=== PATIENT | female | born 1985 | race Caucasian/White ===

== ENCOUNTER 2020-06-17 17:49 | Emergency (ER) | payer BC, SELFPAY ==
--- NOTE | ~2020-06-17 | XR_ITS ---
EXAMINATION: XR chest 2V DATE: 06/17/2020 18:22 INDICATION: Chest pain TECHNIQUE: PA and lateral views of the chest are obtained. COMPARISON: None available FINDINGS: The lungs are free of acute opacities. There is no pleural effusion or pneumothorax. The ca rdiomediastinal silhouette is normal. The visualized bones and soft tissues are unremarkable. IMPRESSION: 1. No acute cardiopulmonary abnormality. Reviewed, dictated and finalized at location A. AL DIRECTOR
[2020-06-17 17:57] VITALS: BP 154/102; PULSE 112; RESP 24; TEMP 36.8; O2SAT 97
--- NOTE | 2020-06-17 17:58 | ECG_ITS ---
Measurements Intervals [place] Rate: 106 P: 49 TX: 184 QRS: 43 QRSD: 93 T: 10 QT: 331 QTc: 440 Interpretive Statements SINUS TACHYCARDIA BORDERLINE T WAVE ABNORMALITY- INFERIOR LEADS BASELINE WANDER- V5-V6 ABNORMAL ECG Electronically Signed On 06-17-2020 19:58:33 ANIMAL WARDEN by Rakan Mims D.O.
--- NOTE | 2020-06-17 18:37 | ED.CHESTPAIN ---
HPI - Chest Pain General Chief Complaint: Chest Pain Stated Complaint: chest pain Time Seen by Provider: 06/17/20 18:35 Source: patient Mode of arrival: ambulatory Limitations: no limitations History of Present Illness HPI narrative: Patient is a 35-year-old female complaining of chest pain, left-sided, sharp, 6 out of 10, nonradiating, worse with palpation and movement, started approximately 3 days ago. Patient states that the she started taking phentermine for weight loss 1 week ago. Patient denies any shortness of breath, abdominal pain, nausea, vomiting, diaphoresis, fever or chills. Review of Systems Review of Systems: All systems reviewed & are unremarkable except as noted in HPI and below Constitutional: Constitutional: Denies body ache(s), Denies chills, Denies excessive sweating, Denies fatigue, Denies fever(s), Denies headache(s), Denies lethargy, Denies malaise, Denies weakness and Denies weight loss Eyes: Eyes: Denies blurry vision, Denies change in vision and Denies loss of vision ENT: Denies dizziness, Denies ear discharge, Denies headache(s), Denies lip swelling, Denies epistaxis, Denies nasal congestion, Denies neck pain, Denies throat swelling and Denies tongue swelling Cardiovascular: Cardiovascular: Denies diaphoresis, Denies rapid heart rate, Denies edema, Denies irregular heart rhythm, Denies lightheadedness, Denies palpitations, Denies dyspnea and Denies dyspnea on exertion Respiratory: Respiratory: Denies chest congestion, Denies cough, Denies hemoptysis, Denies dyspnea and Denies dyspnea on exertion Gastrointestinal: Gastrointestinal: Denies abdominal pain, Denies melena, Denies hematochezia, Denies diarrhea, Denies nausea, Denies vomiting and Denies hematemesis Musculoskeletal: Musculoskeletal: Denies abnormal gait, Denies deformity, Denies joint swelling, Denies limited range of motion, Denies neck pain and Denies numbness Neurologic: Denies Abnormal speech present, Denies abnormal gait, Denies confusion, Denies dizziness, Denies headache(s), Denies focal weakness, Denies loss of vision, Denies numbness, Denies Other visual disturbances, Denies Sensory deficit (Neuro) and Denies weakness Psychiatric: Psychiatric: Denies confusion, Denies depression, Denies auditory hallucinations, Denies homicidal ideation and Denies suicidal ideation Endocrine: Endocrine: Denies cold intolerance, Denies excessive sweating, Denies fatigue, Denies heat intolerance and Denies palpitations Hematologic/Lymphatic: Hematologic/Lymphatic: Denies easy bleeding and Denies easy bruising Allergic/Immunologic: Allergic/Immunologic: Denies lip swelling, Denies throat swelling and Denies tongue swelling PMFSH Comments Past medical history obesity Social history non-smoker no EtOH or drug use Family history noncontributory Exam Const: General: cooperative, healthy appearing, comfortable, no acute distress, well developed, alert and awake; No confusion Orientation/consciousness: oriented to person, oriented to place, oriented to time, patient oriented x3 and No confusion Limitations: no limitations HENMT: Head: normal to inspection, normocephalic and atraumatic Ears: hearing grossly normal bilaterally, TM normal on the right and TM normal on the left General nose exam: Normal external nose present, Normal nares present and No nasal discharge present Face and sinus: normal facial exam Mouth: Yes Normal oral and palatal mucosa present, Yes lip normal, Yes tongue normal and Yes oropharynx normal Throat: posterior oropharynx normal, tonsils normal and uvula midline Eyes: General: appearance normal, both eyes and all related structures Pupils: Equal, round and reactive pupils present EOM: EOMs intact bilaterally Neck: Neck: normal visual inspection, full ROM, no lymphadenopathy and no meningeal signs Chest: Chest palpation & inspection: normal inspection of the chest Resp: Effort & Inspection: normal respiratory effort, able to speak in com
[2020-06-17 18:43] LABS: Basophils Absolute Auto 0.1 K/mm3 (0.0-0.1); Basophils Percent Auto 0.7 % (0.2-1.2); Eosinophils Absolute Auto 0.2 K/mm3 (0-0.3); Eosinophils Percent Auto 2.4 % (0-4.4); Hematocrit 40.9 % (37.0-47.0); Hemoglobin 13.4 g/dL (12.0-15.0); Immature Granulocyte Absolute 0.02 K/mm3 (0.00-0.031); Immature Granulocyte Percent A 0.2 % (0-0.5); Lymphocytes Absolute Auto 3.21 K/mm3 (0.9-3.2); Lymphocytes Percent Auto 34.1 % (18.3-44.2); Mean Corpuscular HGB Conc 32.8 g/dl (32-36); Mean Corpuscular Hemoglobin 29.6 pg (26-34); Mean Corpuscular Volume 90.3 fl (80-100); Mean Platelet Volume 9.5 fl (7.4-10.4); Monocytes Absolute Auto 0.7 K/mm3 (0.1-0.6); Monocytes Percent Auto 7.6 % (2.6-8.5); Neutrophils Absolute Auto 5.2 K/mm3 (1.3-6.7); Platelet Count Result 277 k/mm3 (150-375); Red Blood Count 4.53 M/mm3 (4.2-5.4); Red Cell Distribution Width 12.7 % (11.5-14.5); White Blood Count 9.4 K/mm3 (4.5-10.0)
[2020-06-17 18:54] LABS: INR 0.9; Partial Thromboplastin Time 24.6 SECONDS (22.3-36.8); Prothrombin Time 12.4 Seconds (11.1-14.7)
[2020-06-17 18:55] LABS: Anion Gap 5 mmol/L (8-16); Blood Urea Nitrogen 12 mg/dL (7-17); Carbon Dioxide 27 mmol/L (22-30); Chloride 104 mmol/L (98-107); Estimated CRCL calculation 137 ml/min; Estimated Glomerular Filt Rate > 60; Glucose 99 mg/dL (65-105); Potassium 3.9 mmol/L (3.4-5.0); Sodium 136 mmol/L (137-145)
[2020-06-17 19:06] LABS: Troponin I < 0.012 ng/mL (0.000-0.034)
[2020-06-17 19:14] LABS: D Dimer 0.27 ug/mL (<0.48)
[2020-06-17 19:28] VITALS: BP 128/92; PULSE 89; RESP 16; O2SAT 100
== END 2020-06-17 19:58 | disposition home or self-care (01) ==
PROVIDERS: General Practice; Emergency Provider Emergency Medicine
DX: R07.89 Other chest pain (principal); E66.9 Obesity, unspecified; Z68.36 Body mass index [BMI] 36.0-36.9, adult; R00.0 Tachycardia, unspecified
CPT/HCPCS: 36415; 71046; 80048; 81025; 84484; 85025; 85380; 85610; 85730; 93005; 99284; A4565

== ENCOUNTER 2020-10-12 17:09 | Emergency (ER) | payer OTHER, SELFPAY ==
[2020-10-12 17:20] VITALS: BP 137/86; PULSE 90; RESP 18; TEMP 37.1; O2SAT 98
--- NOTE | 2020-10-12 17:22 | ED.UPPEXIN ---
HPI - Extremity Injury (Upper) General Chief Complaint: Extremity Injury, Upper Stated Complaint: Pain in left Hand Time Seen by Provider: 10/12/20 17:23 Source: patient and RN notes reviewed History of Present Illness HPI narrative: Patient is a 35-year-old female who presents the urgent care with complaints of left hand pain. Patient states it started approximately 1 week ago and she has been using Advil for the pain. Patient states she also got elastic brace [id number] to try to splint the hand. 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 Denies of any known trauma or injury to the hand. No other acute complaints. No acute distress noted. Patient aware of the plan of care. Some parts of this dictation were generated by voice recognition software and may contain typographical and/or grammatical inaccuracies. Related Data Allergies Allergy/AdvReac Type Severity Reaction Status Date / Time No Known Allergies Allergy Verified 10/12/20 17:24 Review of Systems Review of Systems: Narrative: CONSTITUTIONAL: Denies fever, chills, or sweats. EYES: Denies visual changes, redness, or discharge. ENT: Denies rhinorrhea, congestion, sore throat, or otalgia. CARDIOVASCULAR: Denies chest pain, palpitations, or edema. RESPIRATORY: Denies cough or dyspnea. GASTROINTESTINAL: Denies abdominal pain, nausea, vomiting, or diarrhea. GENITOURINARY: Denies dysuria or hematuria. SKIN: Denies rash or itching. MUSCULOSKELETAL: Reports of left hand pain NEUROLOGIC: Denies headache, numbness, or weakness. All other systems reviewed are negative, except as documented in HPI. PMFSH Comments At the time of my signature, I reviewed and agree with the nursing past medical, surgical, social, and family history. There is no relevant family history pertinent to the patient complaint. Exam Narrative: Exam Narrative: GENERAL: This is a well-nourished, well-developed patient, in no apparent distress. HEAD: normocephalic, atraumatic. EYES: PERRL. Sclera clear/white. Vision is grossly intact. EARS: External ears normal NOSE: External nose normal with no obvious nasal discharge, nares without redness, no rhinorrhea. THROAT: Mucous membranes moist NECK: Neck supple CARDIOVASCULAR: Regular rate and rhythm without murmurs, gallops, or rubs. RESPIRATORY: Clear to auscultation. Breath sounds equal bilaterally. No wheezes, rales, or rhonchi. SKIN: warm, intact with no suspicious lesions or rash, good texture and turgor. NEURO: awake, alert, and oriented to person, place and time. There were no obvious focal neurologic abnormalities. EXTREMITIES: No obvious injury, edema, erythema or ecchymosis noted to the left hand. Mild tenderness over the left thenar eminence. Difficulty with making a fist due to pain. Otherwise range of motion within normal limits. Positive strong left radial pulse with capillary refill less than 2 seconds. Course Vital Signs Vital signs: Vital Signs Temperature 98.8 F 10/12/20 17:20 Pulse Rate 90 10/12/20 17:20 Respiratory Rate 18 10/12/20 17:20 Blood Pressure 137/86 10/12/20 17:20 Pulse Oximetry 98 10/12/20 17:20 Temperature 98.8 F 10/12/20 17:20 Pulse Rate 90 10/12/20 17:20 Respiratory Rate 18 10/12/20 17:20 Blood Pressure 137/86 10/12/20 17:20 Pulse Oximetry 98 10/12/20 17:20 Reviewed MDM - Extremity Injury (Upper) MDM Narrative Medical decision making narrative: Advised the patient to complete the steroid regimen as prescribed. Pain is likely due to tendinitis however if pain persist and as recurrent, may need further evaluation with EMG study. Make sure you are eating and drinking while taking the steroid medication. Obtain an [id number] cock-up splint for comfort. May be found at [facility] or [facility]. Follow-up with your PCP within 2 to 5 days or for worsening symptoms or failure to improve. Differential Diagnosis Differential diagnosis: Likely sprain and stra
== END 2020-10-12 17:35 | disposition home or self-care (01) ==
PROVIDERS: Emergency Provider Nurse Practitioner Family
DX: M77.8 Other enthesopathies, not elsewhere classified (principal); M16.10 Unilateral primary osteoarthritis, unspecified hip
CPT/HCPCS: 99213; G0463

== ENCOUNTER 2021-03-06 17:31 | Emergency (ER) | payer OTHER, SELFPAY ==
[2021-03-06 17:38] VITALS: BP 154/86; PULSE 106; RESP 20; TEMP 36.9; O2SAT 100
--- NOTE | 2021-03-06 17:38 | ED.LOWEXIN ---
HPI - Extremity Injury (Lower) General Chief Complaint: Extremity Injury, Lower Stated Complaint: Foot pain in both feet. Time Seen by Provider: 03/06/21 17:38 Source: patient and RN notes reviewed History of Present Illness HPI Narrative: Patient is a 36-year-old female with complaints of bilateral heel and arch pain. 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 Patient states that they have been bothering her for at least 1 month and she has tried switching out her [employer] shoes. 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 States it is increased over the last couple days. Patient denies of any injury or fall. States that she has seen a manager transition in the past and she was placed on oral steroids which helped significantly. Patient states that she has been taking ibuprofen for the pain. No other acute complaints. No acute distress noted. Patient read the plan of care. Some parts of this dictation were generated by voice recognition software and may contain typographical and/or grammatical inaccuracies. Related Data Allergies Allergy/AdvReac Type Severity Reaction Status Date / Time No Known Allergies Allergy Verified 03/06/21 17:47 Review of Systems Review of Systems: CONSTITUTIONAL: Denies fever, chills, or sweats. EYES: Denies visual changes, redness, or discharge. ENT: Denies rhinorrhea, congestion, sore throat, or otalgia. CARDIOVASCULAR: Denies chest pain, palpitations, or edema. RESPIRATORY: Denies cough or dyspnea. GASTROINTESTINAL: Denies abdominal pain, nausea, vomiting, or diarrhea. GENITOURINARY: Denies dysuria or hematuria. SKIN: Denies rash or itching. MUSCULOSKELETAL: Reports of bilateral heel and arch pain NEUROLOGIC: Denies headache, numbness, or weakness. All other systems reviewed are negative, except as documented in HPI. PMFSH Comments At the time of my signature, I reviewed and agree with the nursing past medical, surgical, social, and family history. There is no relevant family history pertinent to the patient complaint. Exam Narrative: GENERAL: This is a well-nourished, well-developed patient, in no apparent distress. HEAD: normocephalic, atraumatic. EYES: PERRL. Sclera clear/white. Vision is grossly intact. EARS: External ears normal NOSE: External nose normal with no obvious nasal discharge, nares without redness, no rhinorrhea. THROAT: Mucous membranes moist NECK: Neck supple CARDIOVASCULAR: Regular rate and rhythm without murmurs, gallops, or rubs. RESPIRATORY: Clear to auscultation. Breath sounds equal bilaterally. No wheezes, rales, or rhonchi. SKIN: warm, intact with no suspicious lesions or rash, good texture and turgor. NEURO: awake, alert, and oriented to person, place and time. There were no obvious focal neurologic abnormalities. EXTREMITIES: Moderate tenderness to bilateral heels with positive strong bilateral pedal pulses and capillary refill less than 2 seconds. Increased pain with weightbearing. Course Vital Signs Vital signs: Vital Signs Temperature 98.4 F 03/06/21 17:38 Pulse Rate 106 H 03/06/21 17:38 Respiratory Rate 20 03/06/21 17:38 Blood Pressure 154/86 H 03/06/21 17:38 Pulse Oximetry 100 03/06/21 17:38 Temperature 98.4 F 03/06/21 17:38 Pulse Rate 106 H 03/06/21 17:38 Respiratory Rate 20 03/06/21 17:38 Blood Pressure 154/86 H 03/06/21 17:38 Pulse Oximetry 100 03/06/21 17:38 Reviewed-patient is informed that they may have pre-hypertension or hypertension based on a blood pressure reading in the department. I recommend the patient call the primary care provider listed on their discharge instructions or a physician of their choice this week to arrange follow-up for further evaluation of possible pre-hypertension or hypertension. MDM - Extremity Injury (Lower) MDM Narrative Medical decision brown
== END 2021-03-06 17:50 | disposition home or self-care (01) ==
PROVIDERS: Emergency Provider Nurse Practitioner Family
DX: G57.63 Lesion of plantar nerve, bilateral lower limbs (principal); M16.10 Unilateral primary osteoarthritis, unspecified hip
CPT/HCPCS: 99213; G0463

== ENCOUNTER 2021-03-21 14:06 | Emergency (ER) | payer OTHER, SELFPAY ==
[2021-03-21 14:13] VITALS: BP 130/89; PULSE 110; RESP 18; TEMP 36.4; O2SAT 99
--- NOTE | 2021-03-21 15:28 | ED.URI ---
HPI - URI/Sore Throat General Chief Complaint: Upper Respiratory Infection Stated Complaint: congestion History of Present Illness HPI Narrative: This is a 36-year-old female presents to the urgent care complaining of congestion cough not feeling well since last Saturday. Patient had a negative Covid test yesterday patient is here to see if there is anything else that she is able to do since she is not feeling well. Related Data Allergies Allergy/AdvReac Type Severity Reaction Status Date / Time No Known Allergies Allergy Verified 03/06/21 17:47 Review of Systems Review of Systems: Cough congestion sore throat All systems reviewed & are unremarkable except as noted in HPI and below PMFSH Comments At time as signature, I have reviewed and agree with nursing past medical, social, surgical and family history. Please see nursing chart for further information. There is no relevant family history pertinent to the presenting complaint. Exam Narrative: GENERAL:Well-appearing, well-nourished, and in no acute distress. HEAD:Normocephalic, EYES: PERRLA ENT: Nares clear, . Mucous membranes moist. Pharyngeal erythema CHEST: Clear to auscultation. No respiratory distress. HEART: Regular rate and rhythm. ABDOMEN:round EXTREMITIES: Normal range of motion. No edema. SKIN: Warm, dry, no rash. NEURO: No focal deficits. Alert and oriented x3. 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 Negative strep, negative influenza Vital Signs Vital signs: Vital Signs Temperature 97.5 F L 03/21/21 14:13 Pulse Rate 110 H 03/21/21 14:13 Respiratory Rate 18 03/21/21 14:13 Blood Pressure 130/89 03/21/21 14:13 Pulse Oximetry 99 03/21/21 14:13 Temperature 97.5 F L 03/21/21 14:13 Pulse Rate 110 H 03/21/21 14:13 Respiratory Rate 18 03/21/21 14:13 Blood Pressure 130/89 03/21/21 14:13 Pulse Oximetry 99 03/21/21 14:13 MDM - URI/Sore Throat Differential Diagnosis Differential diagnosis: Likely upper respiratory infection, otitis media, sinusitis, viral infection, bronchitis, influenza and pharyngitis Lab Data Labs: Influenza A Screen Negative Reference Range: Negative Influenza B Screen Negative Reference Range: Negative Strep Screen Presumptive Negative *(Reference Range: Negative)* Discharge Plan Discharge Clinical Impression: Upper respiratory infection, Acute pharyngitis Patient Disposition: Home, Self-Care Condition: Stable Instructions: Antibiotic Form, Upper Respiratory Infection (ED), Viral Syndrome (ED) Additional Instructions: Viral illness may last between 7-12days; antibiotic is NOT recommended at this time. Recommend antihistamine such as Benadryl at night time and Claritin/Zyrtec/Hien during the day Also, recommend symptomatic treatment includes: rest, fluids, and increase humidity of the air at home. Recommend Acetaminophen or nonsteroidal anti-inflammatory agents (NSAIDs) as directed in the bottle to reduce fever and/pain/headache. Avoid smoking/second-hand smoke. Limit visits to areas with large crowds. Please schedule a follow-up visit with your personal physician for further evaluation and treatment within 3-5days. Including recheck and discussion of your blood pressure. If your symptoms persist, change or worsen significantly before you can contact your personal physician then please, without delay, go to the emergency department for further evaluation Prescriptions: New cetirizine [Zyrtec] 10 mg tablet 10 mg PO DAILY PRN (Reason: angioedema) Qty: 30 RF: 0 benzonatate 100 mg capsule 100 mg PO TID PRN (Reason: cough) Qty: 20 RF: 0 Follow-up/Referrals: PHYSICIAN,HRIS SPECIALIST [Primary Care Provider] - Stand Alone Forms: Work/School Release IP Time of Disposition: 15:32
== END 2021-03-21 15:37 | disposition home or self-care (01) ==
PROVIDERS: Emergency Provider Nurse Practitioner Family
DX: J06.9 Acute upper respiratory infection, unspecified (principal); J02.9 Acute pharyngitis, unspecified
CPT/HCPCS: 87081; 87804; 87880; 99213; G0463

== ENCOUNTER 2021-11-15 13:19 | Emergency (ER) | payer BC, SELFPAY ==
[2021-11-15 13:25] VITALS: BP 132/86; PULSE 126; RESP 20; TEMP 37.1; O2SAT 97
--- NOTE | 2021-11-15 13:48 | ED.EXTPRO ---
HPI - Extremity Problem General Chief complaint: Extremity Problem,Nontraumatic Stated complaint: left elbow injury Time Seen by Provider: 11/15/21 13:25 Source: patient Mode of arrival: ambulatory Limitations: no limitations History of Present Illness HPI Narrative: Mrs. Rose is a 36 year old female patient presenting to the clinic today with c/o left elbow pain. She denies any injury. Woke up this morning with pain in the elbow, thinks she may have slept on it wrong. Went swimming yesterday but denies any pain that occurred yesterday. Pain is non radiating Related Data Allergies Allergy/AdvReac Type Severity Reaction Status Date / Time No Known Allergies Allergy Verified 03/06/21 17:47 Review of Systems Review of Systems: Pertinent positives per HPI. Patient denies any fever, chills, rash, headache, visual changes, dizziness, cough, runny nose, sore throat, shortness of breath, chest pain, palpitations, nausea, vomiting, diarrhea, constipation, abdominal pain, or any urinary issues. PMFSH Comments At the time of my signature, I reviewed and agree with the nursing past medical, surgical, social, and family history. There is no relevant family history pertinent to the patient complaint. Exam Narrative: General: Well-developed, well nourished, in no apparent distress Head: Normocephalic, atraumatic. Cardio: Regular rate and rhythm, s1 and s2 normal, no murmur appreciated. Resp: Clear to auscultation bilaterally, no rhonchi, rales, wheezing or rubs. Musculoskeletal: No deformity, tender to palpation just to the ulnar side proximal of the elbow, grossly normal range of motion with very mild pain to the left ulnar side of the elbow, muscle strength strong and equal, peripheral pulse strong, no edema, no cyanosis, normal gait and station Course Course Emergency Course: Portions of this record may have been created with voice recognition software. Level of Care: Express Care Visit Vital Signs Vital signs: Vital Signs Temperature 37.1 C 11/15/21 13:25 Pulse Rate 126 H 11/15/21 13:25 Respiratory Rate 20 11/15/21 13:25 Blood Pressure 132/86 11/15/21 13:25 Pulse Oximetry 97 11/15/21 13:25 Oxygen Delivery Room Air 11/15/21 13:25 Temperature 37.1 C 11/15/21 13:25 Pulse Rate 126 H 11/15/21 13:25 Respiratory Rate 20 11/15/21 13:25 Blood Pressure 132/86 11/15/21 13:25 Pulse Oximetry 97 11/15/21 13:25 Oxygen Delivery Room Air 11/15/21 13:25 Vital signs reviewed MDM - Extremity (Nontraumatic) MDM Narrative Medical decision making narrative: At the time of visit patient is resting comfortably on the exam table. She has mild tenderness to palpation over the left proximal elbow on the ulnar side. I suspect the patient either has early bursitis versus tendinitis. Supportive measures were discussed with the patient I will send her in a prescription for some prednisone. She voiced understanding of discharge instructions and agrees to treatment plan. Differential Diagnosis Differential diagnosis: Likely other (Bursitis, tendinitis) Discharge Plan Discharge Clinical Impression: Left elbow pain Patient Disposition: Home, Self-Care Condition: Stable Instructions: Antibiotic Form, Elbow Bursitis (ED), Tendinitis (ED) Additional Instructions: I suspect elbow pain is likely caused from tendinitis or bursitis Rest, ice, and elevate. May take Tylenol as needed for pain Prednisone as prescribed Follow-up with your PCP in 3 to 5 days if symptoms persist or sooner if they worsen Prescriptions: New prednisone 20 mg tablet 40 mg PO DAILY 5 Days Qty: 10 0RF Follow-up/Referrals: PHYSICIAN,LOAN SERVICES PROFESSIONAL [Primary Care Provider] - Stand Alone Forms: Work/School Release IP Time of Disposition: 13:51 Quality NIHSS Nursing Documentation ED NIHSS nursing documentation: reviewed/agree
== END 2021-11-15 13:57 | disposition home or self-care (01) ==
PROVIDERS: Emergency Provider Nurse Practitioner Family
DX: M25.522 Pain in left elbow (principal); G57.60 Lesion of plantar nerve, unspecified lower limb
CPT/HCPCS: 99213; G0463

== ENCOUNTER 2022-04-14 08:20 | Emergency (ER) | payer BC, SELFPAY ==
[2022-04-14 08:26] VITALS: BP 118/65; PULSE 92; RESP 16; TEMP 36.1; O2SAT 97
--- NOTE | 2022-04-14 09:04 | ED.URI ---
HPI - URI/Sore Throat General Chief Complaint: Upper Respiratory Infection Stated Complaint: sore throat Time Seen by Provider: 04/14/22 08:55 Source: patient, RN notes reviewed and old records reviewed Mode of arrival: ambulatory Limitations: no limitations History of Present Illness HPI Narrative: 37 year old female accompanied by significant other presents to express care with complaints of sore throat, chills no known fevers for the past 2 days. Patient denies any sinus congestion or drainage or cough. Patient reports that she can't eat her throat is painful and feels swollen. Patient has had COVID vaccinations and also flu shot. patient reports that she has been taking DayQuil and Theraflu for her symptoms and also Ibuprofen with last dose at 0600. MD elicited complaint: sore throat and other (chills and body aches) Onset (ago): day(s) (day 2 of symptoms) Pain scale (0-10): 5 Treatments prior to arrival: ibuprofen and cold medicine Related Data Home Medications Medication Instructions Recorded Confirmed phentermine 37.5 mg tablet mg 04/14/22 04/14/22 Allergies Allergy/AdvReac Type Severity Reaction Status Date / Time No Known Allergies Allergy Verified 03/06/21 17:47 Review of Systems Review of Systems: CONSTITUTIONAL: Reports malaise, chills, sweats, no known fever. EYES: Denies visual changes, redness, or discharge. ENT: Reports rhinorrhea, congestion, sinus pain, otalgia Positive for acute sore throat. CARDIOVASCULAR: Denies chest pain, palpitations, or edema. RESPIRATORY: Reports cough.? Denies dyspnea. GASTROINTESTINAL: Denies abdominal pain, nausea, vomiting, diarrhea SKIN: Denies rash or itching. MUSCULOSKELETAL: Denies myalgia. NEUROLOGIC: Denies headache. All systems reviewed & are unremarkable except as noted in HPI and below PMFSH Social History Social History (Updated 04/17/22 @ 20:47 by Sasha Mena NP) Smoking status: Never smoker Alcohol intake: current Alcohol use details: social Substance use type: does not use Gender identity (if verbalized by the patient): Female Comments At time of signature, agree with nursing past medical, surgical, social and family history. There is no relevant family history pertinent to the presenting complaint Exam Narrative: GENERAL: Well-appearing, well-nourished, and in no acute distress. HEAD: Normocephalic EYES: PERRLA, conjunctivae clear ENT: Nares clear, turbinates edematous and erythematous, clear discharge. Mucous membranes moist. TM pearly jacobs with dull light reflex bilaterally; no tragal tenderness. Oropharynx erythematous without lesions. Tonsils extremely enlarged and with exudate, no drooling, no hoarseness, no trismus, uvula midline. NECK: Supple. lymphadenopathy CHEST: Clear to auscultation, breath sounds equal. No wheezing, rhonchi, rales, or stridor. No respiratory distress, speaks in full sentences.SAO2 97% on room air HEART: Regular rate and rhythm. No murmur heard. SKIN: Warm, dry, no rash. NEURO: Alert and oriented x3. PSYCH: Normal mood and affect Course Course Emergency Course: Patient is aware of diagnosis, understands and agrees to treatment plan.? Anticipatory guidance given.? Patient agrees to follow-up as directed and is aware of reasons to seek care at the emergency department. Portions of this record may have been created with voice recognition software Level of Care: Express Care Visit Vital Signs Vital signs: Vital Signs Temperature 36.1 C L 04/14/22 08:26 Pulse Rate 92 04/14/22 08:26 Respiratory Rate 16 04/14/22 08:26 Blood Pressure 118/65 04/14/22 08:26 Pulse Oximetry 97 04/14/22 08:26 Temperature 36.1 C L 04/14/22 08:26 Pulse Rate 92 04/14/22 08:26 Respiratory Rate 16 04/14/22 08:26 Blood Pressure 118/65 04/14/22 08:26 Pulse Oximetry 97 04/14/22 08:26 Reviewed MDM - URI/Sore Throat MDM Narrative Medical decision making rachel
== END 2022-04-14 09:18 | disposition home or self-care (01) ==
PROVIDERS: Emergency Provider Registered Nurse; PCP Family Medicine
DX: J03.90 Acute tonsillitis, unspecified (principal)
CPT/HCPCS: 87081; 87880; 99213; G0463

== ENCOUNTER 2022-12-30 16:55 | Emergency (ER) | payer BC, SELFPAY ==
--- NOTE | ~2022-12-30 | XR_ITS ---
EXAMINATION: XR elbow RT min 3V DATE: 12/30/2022 17:19 INDICATION: Right-sided right elbow pain post fall TECHNIQUE: Anteroposterior, two oblique and lateral views of the right elbow were obtained. COMPARISON: None. FINDINGS: Alignment is normal. No fracture. 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 Soft tissues are unremarkable. No elbow joint effusion. IMPRESSION: 1. No acute osseous abnormality. Reviewed, dictated and finalized at location A.
[2022-12-30 17:11] VITALS: BP 135/89; PULSE 109; RESP 16; TEMP 36.6; O2SAT 99
[2022-12-30 17:12] VITALS: BP 135/89; PULSE 109; RESP 16; TEMP 36.6; O2SAT 99
--- NOTE | 2022-12-30 17:33 | ED.UPPEXIN ---
HPI - Extremity Injury (Upper) General Chief Complaint: Extremity Injury, Upper Stated Complaint: Fall Injury/Right Elbow History of Present Illness HPI narrative: patient presents with elbow pain patient fell last night and landed on her right elbow. tender to touch no bruising no deformity Related Data Home Medications Medication Instructions Recorded Confirmed phentermine 37.5 mg tablet 37.5 mg PO DAILY 04/14/22 12/30/22 Allergies Allergy/AdvReac Type Severity Reaction Status Date / Time No Known Allergies Allergy Verified 12/30/22 17:11 Review of Systems Review of Systems: CONSTITUTIONAL: Denies fever, chills, or sweats. EYES: Denies visual changes, redness, or discharge. ENT: Denies rhinorrhea, congestion, sore throat, or otalgia. CARDIOVASCULAR: Denies chest pain, palpitations, or edema. RESPIRATORY: Denies cough or dyspnea. GASTROINTESTINAL: Denies abdominal pain, nausea, vomiting, or diarrhea. GENITOURINARY: Denies dysuria or hematuria. SKIN: Denies rash or itching. MUSCULOSKELETAL: Denies back pain, joint pain, or myalgia. NEUROLOGIC: Denies headache, numbness, or weakness. PSYCHIATRIC: Denies anxiety or depression. [facility] Social History Social History (Updated 04/17/22 @ 20:47 by Sasha Mena NP) Smoking status: Never smoker Alcohol intake: current Alcohol use details: social Substance use type: does not use Gender identity (if verbalized by the patient): Female Comments At time of signature, agree with nursing past medical, surgical, social and family history. There is no relevant family history pertinent to the presenting complaint Exam Narrative: GENERAL: Well-appearing, well-nourished, and in no acute distress. HEAD: Normocephalic, atraumatic. EYES: PERRLA and EOMI. ENT: Nares clear, no rhinorrhea or epistaxis. Mucous membranes moist. NECK: Supple. CHEST: Clear to auscultation. No respiratory distress. HEART: Regular rate and rhythm. No murmur heard. Normal peripheral pulses. ABDOMEN: Soft, nontender, nondistended, normal active bowel sounds. EXTREMITIES: Normal range of motion. No edema. Elbow exam normal elbow exam right HAND EXAM - Skin intact, no laceration, no swelling, no erythema, normal digit cascade with flexion of fingers, median nerve, ulnar nerve, radial nerve is intact. Normal sensation of each side of each finger, can perform `ok? sign, `cross over finger test of index and middle fingers? and `thumbs up? sign, normal thumb opposition, no scissoring. good capillary refill and radial pulse. normal flexion and extension of fingers and wrist. normal supination at wrist. Normal forearm and elbow exam. SKIN: Warm, dry, no rash. NEURO: No focal deficits. Alert and oriented x3. Dominga Coma Scale Eye Opening: Spontaneous 4 Dominga Coma Scale Motor: Obeys Commands 6 Dominga Coma Scale Verbal: Oriented 5 Dominga Coma Scale Total 15 Course Course Level of Care: Express Care Visit Vital Signs Vital signs: Vital Signs Temperature 36.6 C 12/30/22 17:11 Pulse Rate 109 H 12/30/22 17:11 Respiratory Rate 16 12/30/22 17:11 Blood Pressure 135/89 12/30/22 17:11 Pulse Oximetry 99 12/30/22 17:11 Oxygen Delivery Room Air 12/30/22 17:11 Temperature 36.6 C 12/30/22 17:12 Pulse Rate 109 H 12/30/22 17:12 Respiratory Rate 16 12/30/22 17:12 Blood Pressure 135/89 12/30/22 17:12 Pulse Oximetry 99 12/30/22 17:12 Oxygen Delivery Room Air 12/30/22 17:12 Discharge Plan Discharge Clinical Impression: Elbow contusion Patient Disposition: Home, Self-Care Condition: Stable Instructions: Elbow Strain (ED) Additional Instructions: Ice to the area 20-30 minutes 4-6 times a day Elevate above heart Where arm sling for 5-7 days and follow-up with regular doctor for further imaging and testing if no improvement in 5 days Tylenol for lesser pain Ibuprofen regularly for the next 2-3 days for the inflammation Follow-up w
== END 2022-12-30 17:48 | disposition home or self-care (01) ==
PROVIDERS: Emergency Provider Nurse Practitioner Family; PCP Family Medicine
DX: S50.01XA Contusion of right elbow, initial encounter (principal); W19.XXXA Unspecified fall, initial encounter; M16.11 Unilateral primary osteoarthritis, right hip; F41.9 Anxiety disorder, unspecified
CPT/HCPCS: 73080; 99213; A4565; G0463

== ENCOUNTER 2023-05-08 10:14 | Emergency (ER) | payer BC, SELFPAY ==
[2023-05-08 10:22] VITALS: BP 112/72; PULSE 100; RESP 20; TEMP 36.8; O2SAT 100
--- NOTE | 2023-05-08 10:27 | ED.URI ---
HPI - URI/Sore Throat General Chief Complaint: Upper Respiratory Infection Stated Complaint: throat/nose Time Seen by Provider: 05/08/23 10:27 Source: patient Mode of arrival: ambulatory Limitations: no limitations History of Present Illness HPI Narrative: 38-year-old female presents with complaint of nasal congestion, cough, sore throat, fatigue starting yesterday. Afebrile. Not taking any [id number] medications to treat her symptoms. No chest pain or shortness of breath. Patient requesting COVID test. All systems reviewed and negative except as noted above. Related Data Home Medications Medication Instructions Recorded Confirmed No Home Medications 05/08/23 05/08/23 Allergies Allergy/AdvReac Type Severity Reaction Status Date / Time No Known Allergies Allergy Verified 05/08/23 10:36 Review of Systems Review of Systems: CONSTITUTIONAL: Denies fever, chills, or sweats. Reports fatigue. EYES: Denies visual changes, redness, or discharge. ENT: Reports rhinorrhea, congestion, sore throat. Denies otalgia. CARDIOVASCULAR: Denies chest pain, palpitations, or edema. RESPIRATORY: Reports cough. Denies dyspnea. GASTROINTESTINAL: Denies abdominal pain, nausea, vomiting, or diarrhea. GENITOURINARY: Denies dysuria or hematuria. SKIN: Denies rash or itching. MUSCULOSKELETAL: Denies back pain, joint pain, or myalgia. NEUROLOGIC: Denies headache, numbness, or weakness. PSYCHIATRIC: Denies anxiety or depression. All other systems reviewed are negative, except as documented in HPI. PMFSH Social History Social History (Updated 04/17/22 @ 20:47 by Sasha Mena NP) Smoking status: Never smoker Alcohol intake: current Alcohol use details: social Substance use type: does not use Gender identity (if verbalized by the patient): Female Comments At time of signature, agree with nursing past medical, surgical, social and family history. There is no relevant family history pertinent to the presenting complaint. Exam Narrative: GENERAL: This is a well-nourished, well-developed patient, in no apparent distress. HEAD: normocephalic, atraumatic. EYES: PERRL. Sclera clear/white. Vision is grossly intact. EARS: External ears normal, auditory canals clear and without drainage, TMs normal without perforation. Hearing grossly intact. NOSE: External nose normal with clear nasal drainage, moderate congestion with erythema and swelling to bilateral nares. THROAT: Mucous membranes moist, posterior pharynx clear. NECK: Neck supple, non-tender without lymphadenopathy, masses or thyromegaly. CARDIOVASCULAR: Regular rate and rhythm without murmurs, gallops, or rubs. RESPIRATORY: Clear to auscultation. Breath sounds equal bilaterally. No wheezes, rales, or rhonchi. SKIN: warm, Dry, intact with no suspicious lesions or rash, good texture and turgor. NEURO: awake, alert, and oriented to person, place and time. There were no obvious focal neurologic abnormalities. EXTREMITIES: No joint tenderness, effusion, or edema noted. Course Course Level of Care: Express Care Visit Vital Signs Vital signs: Vital Signs Temperature 36.8 C 05/08/23 10:22 Pulse Rate 100 05/08/23 10:22 Respiratory Rate 20 05/08/23 10:22 Blood Pressure 112/72 05/08/23 10:22 Pulse Oximetry 100 05/08/23 10:22 Oxygen Delivery Room Air 05/08/23 10:22 Temperature 36.8 C 05/08/23 10:22 Pulse Rate 100 05/08/23 10:22 Respiratory Rate 20 05/08/23 10:22 Blood Pressure 112/72 05/08/23 10:22 Pulse Oximetry 100 05/08/23 10:22 Oxygen Delivery Room Air 05/08/23 10:22 Reviewed MDM - URI/Sore Throat MDM Narrative Medical decision making narrative: Patient is aware of diagnosis, understands and agrees to treatment plan. Anticipatory guidance given. Patient agrees to follow-up as directed and is aware of reasons to seek care at the emergency department. Portions of this record may have been created with
== END 2023-05-08 10:45 | disposition home or self-care (01) ==
PROVIDERS: Emergency Provider Nurse Practitioner Family; PCP Family Medicine
DX: J06.9 Acute upper respiratory infection, unspecified (principal); R05.9 Cough, unspecified; Z20.822 Contact with and (suspected) exposure to COVID-19; M16.11 Unilateral primary osteoarthritis, right hip
CPT/HCPCS: 87081; 87426; 87804; 87880; 99213; G0463

== ENCOUNTER 2023-09-10 15:53 | Emergency (ER) | payer BC, SELFPAY ==
[2023-09-10 15:58] VITALS: BP 153/82; PULSE 98; RESP 20; TEMP 36.6; O2SAT 100
--- NOTE | 2023-09-10 16:26 | ED.EXTPRO ---
HPI - Extremity Problem General Chief complaint: Extremity Problem,Nontraumatic Stated complaint: Left foot/ankle/faria/heel pain Time Seen by Provider: 09/10/23 16:15 Source: patient, RN notes reviewed and old records reviewed Mode of arrival: ambulatory Limitations: no limitations History of Present Illness HPI Narrative: 38 year old female presents to express care with complaints of history of left foot pain but reports today after work patient having pain in left foot heel which radiates up into her lower leg. 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 Patient denies any trauma to her left foot. Patient reports that she had an p done at [facility] thru [facility] and she did not get results, while in room patient pulled up xray report on My Chart showing bone spur on calcaneus per report. 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 Patient reports that she has taken Ibuprofen and has iced foot/heel. Patient reports that she wears good supportive shoes to work in. MD Complaint: extremity pain Onset (ago): hour(s) (increased symptoms today has been ongoing for awhile.) Pain Consistency: intermittent Location: left and lower extremity (foot/heel radiates to lower leg) Quality: stabbing Radiation: proximal Relieving factors: rest Exacerbating factors: weight bearing and walking Related Data Allergies Allergy/AdvReac Type Severity Reaction Status Date / Time No Known Allergies Allergy Verified 05/08/23 10:36 Review of Systems Review of Systems: CONSTITUTIONAL: Denies fever, chills, or sweats. EYES: Denies visual changes, redness, or discharge. ENT: Denies rhinorrhea, congestion, sore throat, or otalgia. CARDIOVASCULAR: Denies chest pain, palpitations, or edema. RESPIRATORY: Denies cough or dyspnea. GASTROINTESTINAL: Denies abdominal pain, nausea, vomiting, or diarrhea. GENITOURINARY: Denies dysuria or hematuria. SKIN: Denies rash or itching. MUSCULOSKELETAL: Denies back pain,Reports pain to left foot heel region radiates up into lower leg , or myalgia. NEUROLOGIC: Denies headache, numbness, or weakness. PSYCHIATRIC: Reports history of anxiety or depression. All systems reviewed & are unremarkable except as noted in HPI and below PMFSH Past Medical History Medical History (Updated 09/11/23 @ 19:41 by Sasha Mena NP) Anxiety Arthritis of right hip Cassidy's neuroma Social History Social History (Updated 04/17/22 @ 20:47 by Sasha Mena NP) Smoking status: Never smoker Alcohol intake: current Alcohol use details: social Substance use type: does not use Gender identity (if verbalized by the patient): Female Comments At time of signature, agree with nursing past medical, surgical, social and family history. There is no relevant family history pertinent to the presenting complaint Exam Narrative: GENERAL: Well-appearing, well-nourished, and in no acute distress. HEAD: Normocephalic, atraumatic. EYES: PERRLA and EOMI. ENT: Nares clear, no rhinorrhea or epistaxis. Mucous membranes moist. NECK: Supple. No lymphadenopathy CHEST: Clear to auscultation. No respiratory distress. HEART: Regular rate and rhythm. No murmur heard. Normal peripheral pulses. ABDOMEN: Soft, nontender, nondistended, normal active bowel sounds. EXTREMITIES: Normal range of motion. No edema.Positive for left foot pain/heel pain with some pain radiating up to lower leg, no warmth or redness to leg, strong pedal pulses, patient is able to flex and extend foot with some stated discomfort. Patient denies any tingling or numbness to left leg or foot.Pain aggravated by ambulation and weight bearing SKIN: Warm, dry, no rash. NEURO: No focal deficits. Alert and oriented x3. Course Course Emergency Course: Patient is aware of diagnosis, understands and agrees to tr
== END 2023-09-10 16:55 | disposition home or self-care (01) ==
PROVIDERS: Emergency Provider Registered Nurse; PCP Family Medicine
DX: M79.672 Pain in left foot (principal); M16.11 Unilateral primary osteoarthritis, right hip
CPT/HCPCS: 99213; G0463

== ENCOUNTER 2024-08-08 13:33 | Emergency (ER) | payer BC, SELFPAY ==
--- NOTE | ~2024-08-08 | CT_ITS ---
CT brain wo con Ordering provider: Kim Montaño APRN History: 39 years Female with . headache . Comparison: None. Technique: CT of the head without contrast. Radiation reduction technique utilized.The dose-length pr oduct was 605.33 mGy-cm. FINDINGS: BRAIN PARENCHYMA AND CSF SPACES: No midline shift, mass effect or hemorrhage. The brain parenchyma a nd CSF spaces are otherwise normal. VISUALIZED PARANASAL SINUSES: Well aerated. MASTOIDS: Well aerated. BONES: The bones appear intact. SOFT TISSUES: Visualized nasopharynx is normal. Superficial soft tissues are normal. IMPRESSION: No acute intracranial findings. Reviewed, dictated and finalized at location A.
--- NOTE | ~2024-08-08 | CT_ITS ---
CT cervical spine wo con Ordering provider: Kim Montaño History: . neck pain . Comparison: None. Technique: CT of the cervical spine was performed without contrast. Sagittal and coronal reformatted images were also obtained and reviewed. Automated exposure control and iterative reconstruction corinne hnique were employed. The dose-length product was 429.78 mGy-cm. FINDINGS: VERTEBRAE: No subluxation or acute fracture. The occipital condyles are intact. Kyphosis centered at the level of C5-C6. Mild Degenerative changes of the spine. DISC SPACES: Normal. PARASPINOUS SOFT TISSUES: Bilateral neck lymph nodes with the largest measures 1 cm. IMPRESSION: No acute osseous abnormality cervical spine. Reviewed, dictated and finalized at location A.
--- OUTSIDE RECORDS SUMMARY | 2024-08-08 13:35 | XMS_ITS | Referral Summary ---
Author Organization [facility] [address] [facility] lto Address [address] [place] [address] Care Team Providers Care Customer Pricing Manager Name Role Phone Jorgito Pritchard MD Primary Care Provider [phone] Allergies No known active allergies Medications metFORMIN (GLUCOPHAGE) 500 mg tablet Take 1 tablet (500 mg total) by mouth daily with breakfast 30 tablet 11 3 Active ibuprofen (ADVIL,MOTRIN) 600 mg tablet Take 1 tablet (600 mg total) by mouth every 8 (eight) hours as needed for pain 90 tablet 1 3 Active Active Problems Problem Noted Date Diagnosed Date PRIMITIVO (obstructive sleep apnea) 03/15/2022 Assessment & Plan (07/19/2022 11:44 AM CDT): Patient will continue CPAP therapy at 17 cm water pressure. I ordered a full set of supplies. DME [employer] Assessment & Plan (03/15/2022 12:07 PM PRACTICAL NURSING FACULTY): The patient is benefiting extremely well from the CPAP at 17 cm water pressure. We are awaiting her download. She will follow-up here in 4 months. Resolved Problems Problem Noted Date Diagnosed Date Resolved Date Snoring 12/14/2021 03/15/2022 Assessment & Plan (12/14/2021 11:59 AM CDT): The patient presents with snoring and daytime hypersomnia. Have recommended proceeding with a nocturnal polysomnogram with a split night protocol if necessary and no MSLT. She will follow-up with me in 3 months. Immunizations Immunization Administration Dates Next Due Influenza, Trivalent, Cell C ulture-based MDCK, Preservative Free, Antibiotic Free, Intramuscular 02/08/2018 Influenza, Unspecified 01/29/2023,02/07/2022 Social History Tobacco Use Types Packs/Day Years Used Date Smoking Tobacco: Former Cigarettes Tobacco Cessation:Counseling Given: Not Answered AUDIT-C Answer Date Recorded Q1: How often do you have a drink containing alc ohol? Monthly or less 10/30/2022 Q2: How many drinks containi ng alcohol do you have on a typical day when you are drinking? 1 or 2 10/30/2022 Q3: How often do you have si x or more drinks on one occasion? Less than monthly 10/30/2022 PHQ-2 Answer Date Recorded PHQ-2 Total Score (If total score is 3 or more points, staff should administer the PHQ-9) 0 02/06/2023 Personal Safety Answer Date Recorded Getting School Help Needed Not on file 03/29 Comments Unknown Sex and Gender Information Value Date Recorded Sex Assigned at Not on file Legal Sex Female 8:00 PM PRACTICAL NURSING FACULTY Gender Identity Not on file Sexual Orientation Not on file Last Filed Vital Signs Vital Sign Reading Time Taken Comments Blood Pressure 110/68 02/06/2023 3:49 PM CDT Pulse 84 02/06/2023 3:49 PM CDT Temperature 36.9 C (98.4 F) 02/06/2023 3:49 PM CDT Respiratory Rate 18 02/06/2023 3:49 PM CDT Oxygen Saturation 98% 02/06/2023 3:49 PM CDT Inhaled Oxygen Concentration - - Weight 89.8 kg (198 lb) 02/06/2023 3:49 PM CDT Height 157.5 cm (5' 2.01 ) 02/06/2023 3:49 PM CD T Body Mass Index 36.21 02/06/2023 3:49 PM CDT Plan of Treatment Not on file Care Teams Customer Pricing Manager Relationship Specialty Start Date End Date Jorgito Pritchard MD [address] [place] [address] PCP - General Family Medicine 11/20/21
--- OUTSIDE RECORDS SUMMARY | 2024-08-08 13:35 | XMS_ITS | Clinical Summary ---
Author Organization [facility] Address [address] [place] [address] Care Team Providers Care Director Apparel Name Role Phone Unavailable Primary Care Provider Unavailabl e Social History Tobacco Use Types Packs/Day Years Used Date Smoking Tobacco: Never Assessed Comments Unknown Sex and Gender Information Value Date Recorded Sex Assigned at Not on file Legal Sex Unknown 08/18/2019 9:30 PM PDT Gender Identity Not on file Sexual Orientation Not on file Plan of Treatment Not on file
--- OUTSIDE RECORDS SUMMARY | 2024-08-08 13:35 | XMS_ITS | Clinical Summary ---
Author Organization [facility] [address] [facility] l[address] Address [address] [place] [address] Care Team Providers Care Assisted Living Home Director Name Role Phone Jorgito Pritchard MD Primary Care Provider [phone] Allergies No known active allergies Medications metFORMIN [...] [employer] Assessment & Plan (03/15/2022 12:07 PM MACARONI MAKER): The patient is benefiting extremely well from [...] Antibiotic Free, Intramuscular 02/08/2018 Influenza, Unspecified 01/29/2023,02/07/2022 Medical History Medical History Date Comments Arthritis Obstructive sleep apnea Family History Relation Name Status Comments Father Alive Mother Alive Social History Tobacco Use Types Packs/Day Years [...] on file Legal Sex Female 8:00 PM MACARONI MAKER Gender Identity Not on file Sexual Orientation Not on file Obstetrics History Last Filed Vital Signs Vital Sign Reading [...] 02/06/2023 3:49 PM CDT Plan of Treatment Health Maintenance Due Date Last Done Comments Cervical Cancer Screening 1985 Hepatitis C Screening 1985 DTaP/Tdap/Td Vaccine (1 - Tdap) 01/17/1996 Varicella Vaccines (1 of 2 - 13+ 2-dose series) 1998 Hepatitis B Screening 2003 Covid-19 Vaccine ( season) 2023 05/10/2020, 04/23/2020 Influenza Vaccine (#1) 2023 , 02/07/2022, 02/08/2018 Depression Screening 02/07/2024 02/06/2023, 10/30/2022, 09/26/2022, Additional history exists Regular Well Visit/Exam 18-64 02/07/2024 02/06/2023 HPV Vaccines Aged Out No longer eligi ble based on patient's age to complete this topic Pneumococcal vaccine <65 Aged Out No longer eligible based on patient's age to complete this topic Care Teams Assisted Living Home Director Relationship Specialty Start Date End Date Jorgito Pritchard MD [address] [place] [address] PCP - General Family Medicine 11/20/21
--- OUTSIDE RECORDS SUMMARY | 2024-08-08 13:35 | XMS_ITS | Encounter Summary ---
Author Organization [facility] [place] [address] [place] [address] Care Team Providers Care Tire And Lube Technician Name Role Phone Unavailable Primary Care Provider Unavailabl e Prior Encounters Date Type Department Care Team Description 05/04/2019 Converted 13x Documents [facility] [address] [place] [address] <No scans attached> 05/04/2019 Converted CPS Chart Documents [facility] [address] [place] [address] <No scans attached> Plan of Treatment Not on file Visit Diagnoses Not on file
--- OUTSIDE RECORDS SUMMARY | 2024-08-08 13:35 | XMS_ITS | Clinical Summary ---
Author Organization [facility] Address [address] [place] [id number] Care Team Providers Care Technical Laboratory Asst Name Role Phone Bassam aDvis MD Primary Care Provider Social History Tobacco Use Types Packs/Day Years Used Date Smoking Tobacco: Never Assessed Comments Unknown Sex and Gender Information Value Date Recorded Sex Assigned at Not on file Legal Sex Female 4:24 PM CDT Gender Identity Not on file Sexual Orientation Not on file Last Filed Vital Signs Vital Sign Reading Time Taken Comments Blood Pressure 122/84 08/01/2016 7:59 AM CDT Pulse 79 08/01/2016 7:59 AM CDT Temperature - - Respiratory Rate - - Oxygen Saturation - - Inhaled Oxygen Concentration - - Weight 78.2 kg (172 lb 4.8 oz) 08/01/2016 7:59 A M CDT Height 157.5 cm (5' 2 ) 08/01/2016 7:59 AM CDT Body Mass Index 31.51 08/01/2016 7:59 AM CDT Plan of Treatment Health Maintenance Due Date Last Done Comments Cervical Cancer Screening Pa p Smear (Age 30 to 64) Every 3 Years 1985 Annual Physical 01/17/1988 Hepatitis C 2003 DTaP, Tdap and Td Vaccines ( 1 - Tdap) 01/17/2004 Hepatitis B Vaccines (1 of 3 - 19+ 3-dose series) 01/17/2004 Cervical Cancer Screening Pa p with HPV Testing (Age 30 to 64) Every 5 Years 2015 Cervical Cancer Screening with HPV 2015 COVID-19 Vaccine (2023-2 5 season) 2023 HPV Vaccines Aged Out No longer eligi ble based on patient's age to complete this topic Meningococcal B Vaccine Aged Out No l onger eligible based on patient's age to complete this topic Meningococcal Vaccine Aged Out No harvey jh eligible based on patient's age to complete this topic Pneumococcal Vaccine: Pediat rics (0 to 5 Years) and At-Risk Patients (6 to 49 Years) Aged Out No longer eligible b ased on patient's age to complete this topic RSV Immunizations Under 20 Months Aged Out No longer eligible based on patient's age to complete this topic Care Teams Technical Laboratory Asst Relationship Specialty Start Date End Date Bassam Davis MD PCP - General 05/19/15
--- OUTSIDE RECORDS SUMMARY | 2024-08-08 13:35 | XMS_ITS | Clinical Summary ---
Author Organization [facility] Address [address] [place] [address] [facility] [place] [address] Care Team Providers Care Player Manager Name Role Phone Unavailable Primary Care Provider Unavailabl e Encounters Date Type Department Care Team Description 07/28/2024 External Device Data [facility]CTION Provider, Abstract 07/14/2024 External Device Data [facility] Provider, Abstract 07/01/2024 External Device Data [facility] Provider, Abstract 07/01/2024 External Device Data [facility] Provider, Abstract 06/20/2024 External Device Data [facility]CTION Provider, Abstract 06/19/2024 External Device Data [facility]STRACTION Provider, Abstract 06/16/2024 External Device Data [facility]STRACTION Provider, Abstract 06/03/2024 External Device Data [facility] ABSTRACTION Provider, Abstract 06/02/2024 External Device Data [facility]STRACTION Provider, Abstract from Last 3 Months Social History Tobacco Use Types Packs/Day Years Used Date Smoking Tobacco: Never Assessed Comments Unknown Sex and Gender Information Value Date Recorded Sex Assigned at Not on file Legal Sex Female 9:27 PM CDT Gender Identity Not on file Sexual Orientation Not on file Plan of Treatment Health Maintenance Due Date Last Done Comments DTAP/TDAP/TD VACCINES (1 - Tdap) 01/17/2004 HEPATITIS B VACCINES (1 of 3 - 19+ 3-dose series) 01/17/2004 HPV/Cotest (21-29) 2006 CERVICAL CANCER SCREENING 2015 HPV/Cotest (30-65) 2015 PAP SMEAR 01/16/201505/21/2005 INFLUENZA VACCINE (#1) 2023 8, 02/08/2018 COVID-19 Vaccine ( season) 2023 05/10/2020, 04/23/2020 HPV VACCINES Aged Out No longer eligi ble based on patient's age to complete this topic Insurance [facility] BLUE ACCESS CHOICE
--- OUTSIDE RECORDS SUMMARY | 2024-08-08 13:35 | XMS_ITS | Clinical Summary ---
Author Organization [facility] Address [address] [place] [place] [address] Care Team Providers Care Equipment Service Lead Name Role Phone Bassam Davis MD Primary Care Provider [phone] Source Comments [facility],non-owned Affiliates and Associated Physician Practices is amultiple site organization consisting of ambulatory clinics and hospital sitesin [place], [place], [place] and [place]. This disclosure is being madepursuant to the Care Everywhere program and may not contain all information available regarding this patient. Last updated 18.[facility] Allergies No known active allergies Medications * Be aware that medications may not be up to date on this document. Alwaysverify current medications with the patient. No known medications Immunizations Immunization Administration Dates Next Due Brittney Pidgon primary monoval ent 12+ yr 0.3mL Purple cap 05/10/2020,04/23/2020 Family History Medical History Relation Name Comments Negative Family History Father Negative Family History Mother Relation Name Status Comments Father Mother Social History Tobacco Use Types Packs/Day Years Used Date Smoking Tobacco: Every Day Cigarettes 0.3 10 Tobacco Cessation:Ready to Q uit: No; Counseling Given: No Alcohol Use Standard Drinks/Week Comments No 0 (1 standard drink = 0.6 oz pur e alcohol) Comments No Sex and Gender Information Value Date Recorded Sex Assigned at Not on file Legal Sex Female 6:27 AM GAS PUMPING STATION SUPERVISOR Gender Identity Not on file Sexual Orientation Not on file Last Filed Vital Signs Vital Sign Reading Time Taken Comments Blood Pressure 122/80 05/18/2016 10:42 AM GAS PUMPING STATION SUPERVISOR Pulse 94 05/18/2016 10:42 AM GAS PUMPING STATION SUPERVISOR Temperature 36.8 C (98.2 F) 05/18/2016 10:42 AM GAS PUMPING STATION SUPERVISOR Respiratory Rate 20 05/18/2016 10:42 AM GAS PUMPING STATION SUPERVISOR Oxygen Saturation 98% 05/18/2016 10:42 AM GAS PUMPING STATION SUPERVISOR Inhaled Oxygen Concentration - - Weight 77.1 kg (170 lb) 05/18/2016 10:42 AM GAS PUMPING STATION SUPERVISOR Height 157.5 cm (5' 2 ) 05/18/2016 10:42 AM GAS PUMPING STATION SUPERVISOR Body Mass Index 31.09 05/18/2016 10:42 AM GAS PUMPING STATION SUPERVISOR Plan of Treatment Health Maintenance Due Date Last Done Comments HIV SCREENING 01/17/2000 HEPATITIS C SCREENING 01/12/2003 DTAP/TDAP/TD VACCINES (1 - Tdap) 01/17/2004 HEPATITIS B VACCINE (1 of 3 - 19+ 3-dose series) 01/17/2004 COVID-19 VACCINE ( - 2023-2 5 season) 2023 05/10/2020, 04/23/2020 DEPRESSION SCREENING 04/15/2024 INFLUENZA VACCINE (Season Ended) 2024 02/08/2018 ZOSTER VACCINE (1 of 2) 2035 HIB VACCINE Aged Out No longer eligi ble based on patient's age to complete this topic HPV VACCINE Aged Out No longer eligi ble based on patient's age to complete this topic MENINGOCOCCAL (Group B) VACCINE SHARED DECISION-MAKING Aged Out No longer eligible based on patient's age to complete this topic MENINGOCOCCAL GROUPS A/C/Y/W VACCINE Aged Out No longer eligible b ased on patient's age to complete this topic PNEUMOCOCCAL VACCINE Aged Out No long er eligible based on patient's age to complete this topic Insurance [facility] Care Teams Equipment Service Lead Relationship Specialty Start Date End Date Bassam Davis MD [address] [address] PCP - General Family Medicine 05/18/16
[2024-08-08 13:45] VITALS: BP 134/89; PULSE 110; RESP 16; TEMP 36.7; O2SAT 100
--- NOTE | 2024-08-08 14:50 | ED.NECK ---
HPI - Neck Pain/Injury General Chief Complaint: Neck Pain/Injury <Kim Montaño APRN - Last Filed: 08/08/24 14:53> Stated Complaint: NECK PAIN <Kim Montaño APRN - Last Filed: 08/08/24 14:53> Time Seen by Provider: 08/08/24 14:45 <Kim Montaño APRN - Last Filed: 08/08/24 14:53> Focused HPI: Patient is being female presents to the ER of worsening neck pain and headache. She reports the pain started Saturday, 5 days ago. Patient denies any injury to her head or neck. She reports and stiffness has progressively worsened each day. Patient reports she has kept icy patches on the site and used ibuprofen with no relief. She denies any numbness/tingling/weakness, recent fevers, N & V, mastoid tenderness, or visual changes. Patient endorses neck stiffness and increased pain with range of motion. GENERAL: Well-appearing, well-nourished, and in no acute distress. HEAD: Normocephalic, atraumatic. CHEST: Clear to auscultation. ?No respiratory distress. HEART: Regular rate and rhythm.? NEURO: ?Alert and oriented x3. Cranial nerves intact. Patient screened in triage and initial orders placed.? ?Additional care and disposition to be based upon?diagnostic testing and treatment. <Kim Montaño APRN - Last Filed: 08/08/24 14:53> History of Present Illness HPI Narrative: I agree with the above HPI <Raimundo Felipe MD - Last Filed: 08/08/24 18:40> Related Data Allergies/Adverse Reactions: Allergies Allergy/AdvReac Type Severity Reaction Status Date / Time No Known Allergies Allergy Verified 08/08/24 13:34 <Kim Montaño APRN - Last Filed: 08/08/24 14:53> Review of Systems Review of Systems: All systems reviewed & are unremarkable except as noted in HPI and below <Raimundo Felipe MD - Last Filed: 08/08/24 18:40> PMFSH Past Medical History Medical History: Medical History (Updated 08/08/24 @ 16:04 by Raimundo Felipe MD) Cassidy's neuroma Arthritis of right hip Anxiety <Kim Montaño APRN - Last Filed: 08/08/24 14:53> Social History Social History: Social History (Updated 04/17/22 @ 20:47 by Sasha Mena NP) Smoking status: Never smoker Alcohol intake: current Alcohol use details: social Substance use type: does not use Gender identity (if verbalized by the patient): Female <Kim Montaño APRN - Last Filed: 08/08/24 14:53> Exam Narrative: APPEARANCE: Well appearing, no pain, no distress, well-nourished. HEAD: normocephalic, atraumatic. EYES: PERRLA/EOMI, conjunctivae clear. NOSE: Normal no drainage EARS:TMS clear with good light reflex. THROAT: Pharynx clear, no exudate. NECK: Supple. No adenopathy, no masses. RESPIRATORY: Airway patent, respirations nonlabored. Clear to auscultation bilaterally, no rales, rhonchi, wheezing. CARDIOVASCULAR: Regular rate and rhythm without murmurs rubs or gallops. ABDOMINAL: Soft, nontender, nondistended, normal bowel sounds MUSCULOSKELETAL: Left trapezius tenderness with tenderness into muscular neck NEURO: Alert. Cranial nerves II through XII intact. Grossly intact SKIN: Warm, dry. Normal Color <Raimundo Felipe MD - Last Filed: 08/08/24 18:40> Course Vital Signs Vital signs: Vital Signs Temperature 98.1 F 08/08/24 13:45 Pulse Rate 110 H 08/08/24 13:45 Respiratory Rate 16 08/08/24 13:45 Blood Pressure 134/89 08/08/24 13:45 Pulse Oximetry 100 08/08/24 13:45 Oxygen Delivery Room Air 08/08/24 13:45 Temperature 98.1 F 08/08/24 13:45 Pulse Rate 110 H 08/08/24 13:45 Respiratory Rate 16 08/08/24 13:45 Blood Pressure 134/89 08/08/24 13:45 Pulse Oximetry 100 08/08/24 13:45 Oxygen Delivery Room Air 08/08/24 13:45 <Kim Montaño APRN - Last Filed: 08/08/24 14:53> Vital Signs Temperature 98.1 F 08/08/24 13:45 Pulse Rate 110 H 08/08/24 13:45 Respiratory Rate 16 08/08/24 13:45 Blood Pressure 134/89 08/08/24 13:45 Pulse Oximetry 100 08/08/24 13:45 Oxygen Delivery Room Air 08/08/24 13:45 Temperature 98.1 F 08/08/24 13:45 Pulse Rate 110 H 08/08/24 13:45 Respiratory Rate 16 08/08/24 13:45 Blood Pressure 134/89 08/08/24 13:45 Pulse Oximetry 100 08/08/24 13:45 Oxygen Delivery Room Air 08/08/24 13:45 <Raimundo Felipe MD - Last Filed: 08/08/24 18:40> MDM - Neck Pain/Injury MDM Narrative Medical decision making narrative: 39-year-old female presents emergency department for evaluation for left-sided trapezius tenderness into cervical aspects of trapezius. Patient has no neurologic abnormalities with normal head CT and neck CT. Patient was provided medications for pain control for home. Patient was encouraged close follow-up with primary care physician. All questions and concerns were addressed. <Raimundo Felipe MD - Last Filed: 08/08/24 18:40> Differential Diagnosis Differential diagnosis: Likely disc disorder of cervical region, whiplash injury to neck, closed subluxation of cervical spine, torticollis and strain of neck muscle <Raimundo Felipe MD - Last Filed: 08/08/24 18:40> Imaging Data Radiologist's impression: Impressions Head CT 08/08/24 15:26 IMPRESSION: No acute intracranial findings. Cervical Spine CT 08/08/24 16:12 IMPRESSION: No acute osseous abnormality cervical spine. <Raimundo Felipe MD - Last Filed: 08/08/24 18:40> Discharge Plan Discharge Clinical Impression: Strain of cervical portion of left trapezius muscle <Kim Montaño APRN - Last Filed: 08/08/24 14:53> Patient Disposition: Home <Kim Montaño APRN - Last Filed: 08/08/24 14:53> Condition: Stable <Kim Montaño APRN - Last Filed: 08/08/24 14:53> Instructions: Antibiotic Form, Neck Pain (ED) <Kim Montaño APRN - Last Filed: 08/08/24 14:53> Additional Instructions: Medrol Dosepak as directed. Flexeril for muscle spasm and [place] as needed for additional pain control. Have close follow-up with your primary care physician. If you have any worsening symptoms then please call or return to the emergency department. <Kim Montaño APRN - Last Filed: 08/08/24 14:53> Patient Language: German <Kim Montaño APRN - Last Filed: 08/08/24 14:53> Prescriptions: New cyclobenzaprine 10 mg tablet 10 mg PO BID PRN (Reason: muscle spasm) Qty: 14 0RF methylprednisolone [Medrol (Gregory)] 4 mg tablets,dose pack See Rx Instructions .ROUTE .COMPLEX Qty: 21 0RF Rx Instructions: for 6 days hydrocodone-acetaminophen 5-325 mg tablet 1 tablet PO Q12H PRN (Reason: pain) Qty: 10 0RF No Action prednisone 20 mg tablet 20 mg PO BID Qty: 10 0RF <Kim Montaño APRN - Last Filed: 08/08/24 14:53> Follow-up/Referrals: Harms,Jorgito Wang M.D. [Primary Care Provider] - <Kim Montaño APRN - Last Filed: 08/08/24 14:53>
--- OUTSIDE RECORDS SUMMARY | 2024-08-08 16:07 | XMS_ITS | Clinical Summary ---
Author Organization [facility] Address [address] [place] [address] Care Team Providers Care Tape Weaver Name Role Phone Bassam Davis MD Primary Care Provider [phone] Source Comments [facility],non-owned Affiliates and Associated Physician Practices is amultiple site organization consisting of ambulatory clinics and hospital sitesin [place], [place], [place] and [place]. This disclosure is being madepursuant to the Care Everywhere program and may not contain all information available regarding this patient. Last updated 18.[facility] Allergies No known active allergies Medications * Be aware that medications may not be up to date on this document. Alwaysverify current medications with the patient. No known medications Immunizations Immunization Administration Dates Next Due Brittney Songdrop primary monoval ent 12+ yr 0.3mL Purple [...] on file Legal Sex Female 6:27 AM ADMIN PROG COORD Gender Identity Not on file Sexual Orientation Not on file Last Filed Vital Signs Vital Sign Reading Time Taken Comments Blood Pressure 122/80 05/18/2016 10:42 AM ADMIN PROG COORD Pulse 94 05/18/2016 10:42 AM ADMIN PROG COORD Temperature 36.8 C (98.2 F) 05/18/2016 10:42 AM ADMIN PROG COORD Respiratory Rate 20 05/18/2016 10:42 AM ADMIN PROG COORD Oxygen Saturation 98% 05/18/2016 10:42 AM ADMIN PROG COORD Inhaled Oxygen Concentration - - Weight 77.1 kg (170 lb) 05/18/2016 10:42 AM ADMIN PROG COORD Height 157.5 cm (5' 2 ) 05/18/2016 10:42 AM ADMIN PROG COORD Body Mass Index 31.09 05/18/2016 10:42 AM ADMIN PROG COORD Plan of Treatment Health Maintenance Due Date [...] patient's age to complete this topic Insurance [facility] Care Teams Tape Weaver Relationship Specialty Start Date End Date Bassam Davis MD [address] [place] [address] PCP - General Family Medicine 05/18/16
--- OUTSIDE RECORDS SUMMARY | 2024-08-08 16:07 | XMS_ITS | Encounter Summary ---
Author Organization [facility] Address [address] [place] [address] Care Team Providers Care Food Product Inspector Name Role Phone Unavailable Primary Care Provider Unavailabl e Prior Encounters Date Type Department Care Team Description 05/04/2019 Converted 13x Documents [facility] [address] [place] [address] <No scans attached> 05/04/2019 Converted CPS Chart Documents [facility] [address] [place] [address] <No scans attached> Plan of Treatment Not on file Visit Diagnoses Not on file
--- OUTSIDE RECORDS SUMMARY | 2024-08-08 16:07 | XMS_ITS | Clinical Summary ---
Author Organization [facility] Address [address] [place] [address] [facility] [place] [address] Care Team Providers Care Superintendent Geophysical Laboratory Name Role Phone Unavailable Primary Care Provider [...] patient's age to complete this topic Insurance [facility] BLUE ACCESS CHOICE
--- OUTSIDE RECORDS SUMMARY | 2024-08-08 16:07 | XMS_ITS | Clinical Summary ---
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
--- OUTSIDE RECORDS SUMMARY | 2024-08-08 16:07 | XMS_ITS | Clinical Summary ---
Author Organization [facility] Address [address] [place] [address] Care Team Providers Care Trim Attacher Name Role Phone Unavailable Primary Care Provider [...]
--- OUTSIDE RECORDS SUMMARY | 2024-08-08 16:07 | XMS_ITS | Clinical Summary ---
Author Organization [facility] Address [address] [place] [id number] Care Team Providers Care Mint Wafer Depositor Name Role Phone Bassam Davis MD Primary Care Provider [phone] Social History Tobacco Use Types Packs/Day Years [...] age to complete this topic Care Teams Mint Wafer Depositor Relationship Specialty Start Date End Date Bassam Davis MD PCP - General 05/19/15
--- OUTSIDE RECORDS SUMMARY | 2024-08-08 16:07 | XMS_ITS | Referral Summary ---
Author Organization [facility] [address] [facility] [address] Address [address] [place] [address] Care Team Providers Care Labor Economist Name Role Phone Jorgito Pritchard MD Primary Care Provider [phone] Allergies No known active allergies Medications metFORMIN [...] [employer] Assessment & Plan (03/15/2022 12:07 PM RN PROVIDER RELATIONS): The patient is benefiting extremely well from [...] on file Legal Sex Female 8:00 PM RN PROVIDER RELATIONS Gender Identity Not on file Sexual Orientation [...] of Treatment Not on file Care Teams Labor Economist Relationship Specialty Start Date End Date Jorgito Pritchard MD [address] [place] [address] PCP - General Family Medicine 11/20/21
[2024-08-08] MEDS: predniSONE 20 MG TABLET 40 MG PO (16:12)
[2024-08-08] MEDS: HYDROcodone/acetaminophen (*CRX) 5-325 MG TABLET 1 TAB PO (16:13)
[2024-08-08] MEDS: CYCLOBENZAPRINE HCL 10 MG TABLET PO (16:13)
[2024-08-08] MEDS: KETOROLAC (*BKC) 60 MG/2 ML VIAL IM (16:13)
== END 2024-08-08 16:31 | disposition home or self-care (01) ==
PROVIDERS: Emergency Provider Emergency Medicine; PCP Family Medicine
DX: S16.1XXA Strain of muscle, fascia and tendon at neck level, initial encounter (principal); M16.11 Unilateral primary osteoarthritis, right hip; X58.XXXA Exposure to other specified factors, initial encounter
CPT/HCPCS: 70450; 72125; 96372; 99284; A9270; J1885; J7512